=== PATIENT | female | born 1985 | race Two or more races ===

== ENCOUNTER 2016-06-14 10:10 | Emergency (ER) | payer OTHER ==
[2016-06-14 10:20] VITALS: BP 106/69
--- NOTE | 2016-06-14 10:37 | UC ---
Respiratory Complaint HPI - HPI Summary HPI Summary: The patient comes in today for: 1. Sore throat, sinus and chest congestion, body aches, Onset: 3 days ago. Palliative/provocative: Dayquil taken and helped. Quality: Scratchy. Region: Posterior throat. Severity: Body pain: 8/10, sore throat: 8/10 though she looks more like 4/10 Time: Constant. Associated symptoms: Rhinitis: Green mucous Cough: Productive of green phlegm. Fever: None found at home when temperature taken. Chest pain: None. Shortness of breath: None. * - History of Current Complaint Chief Complaint: UCGeneralIllness Stated Complaint: SINUS CONGESTION, AND ACHES Time Seen by Provider: 06/14/16 10:32 Hx Obtained From: Patient Hx Last Menstrual Period: 05/28/16 ?: No - Allergies/Home Medications Allergies/Adverse Reactions: Allergies Allergy/AdvReac Type Severity Reaction Status Date / Time Morphine AdvReac Severe Shortness Verified 06/14/16 10:16 of Breath SEAFOOD Allergy Severe Swelling Uncoded 06/14/16 10:16 Home Medications: Home Medications Albuterol HFA INHALER* [Ventolin HFA Inhaler*] 1 puff INH Q4H PRN 06/14/16 [ History Confirmed 06/14/16] PMH/Surg Hx/FS Hx/Imm Hx Endocrine History Of: Denies: Diabetes, Thyroid Disease, Hyperthyroidism, Hypothyroidism, Dyslipidemia Cardiovascular History Of: Reports: Cardiac Disorders - Hx "palpitations" "The cardio dr is not really sure what is causing it." Denies: Hypertension, Pacemaker/ICD, Myocardial Infarction, Congestive Heart Failure, Atrial Fibrillation, Deep Vein Thrombosis, Bleeding Disorders Respiratory History Of: Reports: Asthma Denies: COPD, Bronchitis, Pneumonia, Pulmonary Embolism GI/ History Of: Denies: Gastroesophageal Reflux, Ulcer, Gastrointestinal Bleed, Gall Bladder Disease, Kidney Stones, Diverticulitis, Renal Disease, Urosepsis Neurological History Of: Reports: Migraine - On no regular medications for this. Denies: TIA, CVA, Dementia, Seizures Psychological History Of: Denies: Anxiety, Depression, Bipolar Disorder, Schizophrenia, Post Traumatic Stress Disorder Cancer History Of: Denies: Lung Cancer, Colorectal Cancer, Breast Cancer, Prostate Cancer, Cervical Cancer Other History Of: Negative For: HIV, Hepatitis B, Hepatitis C, Anticoagulant Therapy - Surgical History Surgical History: Yes Surgery Procedure, Year, and Place: 2 C-SECTIONS - Family History Known Family History: Negative: Cardiac Disease, Hypertension, Renal Disease Family History: NON CONTRIBUTORY - Social History Occupation: Employed Full-time Alcohol Use: None Substance Use Type: None Smoking Status (MU): Never Smoked Tobacco Review of Systems Constitutional: Negative Skin: Negative Eyes: Negative ENT: Sore Throat, Nasal Discharge Respiratory: Cough Cardiovascular: Negative Gastrointestinal: Negative Genitourinary: Negative All Other Systems Reviewed And Are Negative: Yes Physical Exam Triage Information Reviewed: Yes Appearance: Well-Appearing, No Pain Distress, Well-Nourished Vital Signs: Initial Vital Signs Temp 98.5 F 06/14/16 10:17 Pulse 103 06/14/16 10:17 Resp 16 06/14/16 10:17 BP 106/69 06/14/16 10:17 Pulse Ox 97 06/14/16 10:17 Vital Signs Reviewed: Yes Eyes: Positive: Conjunctiva Clear. Negative: Discharge ENT: Positive: Hearing grossly normal, Other: - There is soreness of the frontal and maxillary sinuses with palpation.. Negative: Pharyngeal erythema, Nasal congestion, Nasal drainage, TM bulging, TM dull, TM red, Tonsillar swelling, Tonsillar exudate Dental: Negative: Gross Decay/Caries @, Dental Fracture @ Neck: Positive: Supple, Nontender, No Lymphadenopathy. Negative: Nuchal Rigidity Respiratory: Positive: Lungs clear, No respiratory distress, No accessory muscle use. Negative: Crackles, Wheezing Cardiovascular: Positive: RRR, No Murmur Abdomen Description: Positive: Nontender, No Organomegaly, Soft. Negative: Distended, Guarding Musculoskeletal: Positive: Strength Intact, ROM Intact, No Edema Neurological: Positive: Alert, Muscle Tone Normal Psychological: Positive: Age Appropriate Behavior, Consolable Skin: Negative: rashes, breakdown UC Diagnostic Evaluation - Laboratory O2 Sat by Pulse Oximetry: 97 Respiratory Course/Dx - Differential Dx/Diagnosis Differential Diagnosis/HQI/PQRI: Asthma, Bronchitis, Laryngitis, Sinusitis Provider Diagnoses: Sinusitis. Bronchitis Discharge - Discharge Plan Condition: Stable Disposition: HOME Patient Education Materials: Sinusitis (ED), Acute Bronchitis (ED) Forms: *Work Release Referrals: Phoenix Amin MD [Primary Care Provider] - 1 Week (Please see your primary care provider in a week to see how well you are doing. If you get worse, please be seen sooner in the ER or through us.)
== END 2016-06-14 10:54 | disposition home or self-care (01) ==
LOC: UCEAST 10:10
DX: J32.9 Chronic sinusitis, unspecified (principal); J40 Bronchitis, not specified as acute or chronic; Z88.6 Allergy status to analgesic agent
CPT/HCPCS: 99212; G0463

== ENCOUNTER 2016-07-07 08:24 | Emergency (ER) | payer OTHER ==
[2016-07-07] MEDS ORDERED: NS 0.9% 1000 ML* 1,000 ML IV ONE (08:53)
[2016-07-07] MEDS ORDERED: diPHENhydraMINE IV* 50 MG/ML 1 ml VIAL (BENADRYL) IV ONE (08:53)
[2016-07-07] MEDS ORDERED: Ondansetron INJ* 2 MG/ML VIAL IV ONE (08:54)
[2016-07-07] MEDS ORDERED: Metoclopramide IV* 5 MG/ML 2 ML VIAL IV ONE (08:54)
[2016-07-07] MEDS ORDERED: Metoclopramide IV* 5 MG/ML 2 ML VIAL ONE ×2 (08:59)
[2016-07-07 10:25] VITALS: BP 109/67
--- NOTE | 2016-07-07 14:08 | UC ---
Luann Li Janilya, scribed for [facility],Klaus Buchanan MD on 07/07/16 at 0846 . Abdominal Pain Female HPI - HPI Summary HPI Summary: Nurse's note: VOMITING AND DIARRHEA SINCE LAST NIGHT. DAUGHTER HAD THE SAME THING FOR TWO DAYS BUT IS OK NOW. note: Vital signs are stable. Note is made of a tachycardia, which may be the result of a mild dehydration. Pulse is 99. Pain is 10/10. Does not use alcohol or smoke. PMHx is notable for palpitations of unclear cause and asthma. Pt had 2 previous C-sections. Her daughter had similar Sx 2 days ago. Allergic to morphine and sea food. Chart review is significant for previous visits for vomiting, diarrhea, migraines, as well as gastritis. HPI: A 31 y/o female came in to [facility] presenting w/ a gradual onset of constant n /v/d starting last night. She states that she cannot keep fluids down. In addition, she states that she has epigastric abd pain. Pt reports that her daughter has been vomiting a few days ago. No PMHx of gallbladder removal, appendicitis. - History of Current Complaint Chief Complaint: UCRespiratory Stated Complaint: VOMITING/DIARRHEA Hx Obtained From: Patient Hx Last Menstrual Period: 05/28/2017 Onset/Duration: Gradual Onset, Lasting Days, Still Present Severity Initially: Moderate Severity Currently: Moderate Location: Diffuse Radiates: No Character: Cramping, Dull Aggravating Factor(s): Nothing Alleviating Factor(s): Nothing Associated Signs and Symptoms: Positive: Nausea, Vomiting, Diarrhea Allergies/Adverse Reactions: Allergies Allergy/AdvReac Type Severity Reaction Status Date / Time Morphine AdvReac Severe Shortness Verified 07/07/16 08:33 of Breath SEAFOOD Allergy Severe Swelling Uncoded 07/07/16 08:33 PMH/Surg Hx/FS Hx/Imm Hx Previously Healthy: Yes Endocrine History Of: Denies: Diabetes, Thyroid Disease, Hyperthyroidism, Hypothyroidism, Dyslipidemia Cardiovascular History Of: Reports: Cardiac Disorders - Hx "palpitations" "The cardio dr is not really sure what is causing it." Denies: Hypertension, Pacemaker/ICD, Myocardial Infarction, Congestive Heart Failure, Atrial Fibrillation, Deep Vein Thrombosis, Bleeding Disorders Respiratory History Of: Reports: Asthma Denies: COPD, Bronchitis, Pneumonia, Pulmonary Embolism GI/ History Of: Denies: Gastroesophageal Reflux, Ulcer, Gastrointestinal Bleed, Gall Bladder Disease, Kidney Stones, Diverticulitis, Renal Disease, Urosepsis Neurological History Of: Reports: Migraine - On no regular medications for this. Denies: TIA, CVA, Dementia, Seizures Psychological History Of: Denies: Anxiety, Depression, Bipolar Disorder, Schizophrenia, Post Traumatic Stress Disorder Cancer History Of: Denies: Lung Cancer, Colorectal Cancer, Breast Cancer, Prostate Cancer, Cervical Cancer Other History Of: Negative For: HIV, Hepatitis B, Hepatitis C, Anticoagulant Therapy - Surgical History Surgical History: Yes Surgery Procedure, Year, and Place: 2 C-SECTIONS - Family History Known Family History: Negative: Cardiac Disease, Hypertension, Renal Disease Family History: NON CONTRIBUTORY - Social History Alcohol Use: None Substance Use Type: None Smoking Status (MU): Never Smoked Tobacco Review of Systems Constitutional: Negative Skin: Negative Eyes: Negative ENT: Negative Respiratory: Negative Cardiovascular: Negative Gastrointestinal: Abdominal Pain, Vomiting, Diarrhea, Other - nausea Genitourinary: Negative Motor: Negative Neurovascular: Negative Musculoskeletal: Negative Neurological: Negative Psychological: Negative All Other Systems Reviewed And Are Negative: Yes Physical Exam Triage Information Reviewed: Yes Appearance: Well-Appearing, No Pain Distress, Well-Nourished Vital Signs: Initial Vital Signs Temp 96.7 F 07/07/16 08:34 Pulse 107 07/07/16 08:34 Resp 18 07/07/16 08:34 BP 105/67 07/07/16 08:34 Pulse Ox 99 07/07/16 08:34 Vital Signs Reviewed: Yes Eyes: Positive: Conjunctiva Clear ENT: Positive: Hearing grossly normal, Pharynx normal, TMs normal. Negative: Muffled/hoarse voice Neck: Positive: Supple, Nontender Respiratory: Positive: Chest non-tender, Lungs clear, Normal breath sounds, No respiratory distress Cardiovascular: Positive: RRR, No Murmur Abdomen Description: Positive: Other: - EPIGASTRIC ABD DISCOMFORT, DIFFUSE ABD CRAMPING Musculoskeletal: Positive: Strength Intact Neurological: Positive: Alert Psychological: Positive: Age Appropriate Behavior Skin: Negative: rashes Re-Evaluation - Re-Evaluation 1020 Re-Evaluation Time: 10:20 Comment: Mild epigastric discomfort. Vital signs are hyperactive, no peritoneal signs. Abd Pain Female Course/Dx - Course Course Of Treatment: I discussed the condition with her family. I believe she has gastroenteritis. Pulse is slightly lower after a liter of fluids. DDx include gastroenteritis, cholecystitis. Dx: 1. Gastroenteritis. 2. Peptic discomfort. I discussed with the pt about using Zofran and Benadryl as well as how to take small amounts of fluids. Prilosec, Pepto-Bismol, or Mylanta for possible acid reflux. - Differential Dx/Diagnosis Differential Diagnosis: Other - Cholecystitis, gastroenteritis Provider Diagnoses: Peptic discomfort, gastroenteritis Discharge - Discharge Plan Condition: Stable Disposition: HOME Prescriptions: Omeprazole CAP* [Prilosec CAP* 20 MG] 20 mg PO DAILY #20 cap.dr MDD 1 Ondansetron ODT TAB* [Zofran Odt TAB*] 4 mg PO Q6H #10 tab.odt Patient Education Materials: Gastroenteritis in Children (ED), Gastroenteritis (ED), Acute Nausea and Vomiting (ED) Referrals: Phoenix Amin MD [Primary Care Provider] - Additional Instructions: WE DISCUSSED: YOU HAVE STOMACH FLU AND IT LOOKS IF YOUR WHOLE FAMILY IS GETTING IT. REST, FLUIDS, ICE CHIPS OR POPS, DILUTE GATORADE OR FLAT HEVER JOSEE OR 7 UP. YOU HAS HAVE ACID DISCOMFORT IN YOUR STOMACH. TREATMENT: FOR NAUSEA/VOMITING: ZOFRAN AND BENADRYL (25 MG, UP TO 4 TIMES A DAY). GET BENADRYL OVER THE COUNTER. FOR ACID DISCOMFORT: MYLANTA OR PEPTO BISMOL; AND PRILOSEC. GO TO ED FOR ANY INCREASED OR NEW PAIN OR INABILITY TO TAKE FLUIDS. THIS SHOULD BE GETTING BETTER IN THE NEXT 2-3 DAYS. YOU SHOULDN'T HAVE A TEMPERATURE ABOVE 101.5. The documentation as recorded by the Luann osman Janilya accurately reflects the service I personally performed and the decisions made by me, Klaus Hagen MD.
== END 2016-07-07 10:37 | disposition home or self-care (01) ==
LOC: UCEAST 08:24
DX: K52.9 Noninfective gastroenteritis and colitis, unspecified (principal); R10.13 Epigastric pain; Z88.5 Allergy status to narcotic agent
CPT/HCPCS: 96360; 96374; 96375; 99212; G0463; J1200; J2405; J2765

== ENCOUNTER 2016-07-28 10:40 | Emergency (ER) | payer OTHER ==
[2016-07-28 11:07] VITALS: BP 112/65
[2016-07-28] MEDS ORDERED: Ketorolac INJ* 30 MG/ML 1 ML VIAL IM ONE (12:22)
[2016-07-28] MEDS ORDERED: diPHENhydraMINE IV* 50 MG/ML 1 ml VIAL (BENADRYL) IM ONE (12:23)
[2016-07-28] MEDS ORDERED: Ondansetron ODT TAB* 4 MG PO ONE (12:23)
--- NOTE | 2016-07-28 12:59 | UC ---
Ragini Li Matthew[facility] 07[facility]28[facility]16 at 1223 . Headache HPI - HPI Summary HPI Summary: Nurse's Note: pt has had a headache since last night w/ photosensitivity and vomiting pt has hx migraines Note: Temp 99, Vital signs stable, BP 112/65, Pulse oxygen 100%, 10/10, no alcohol, no smoker, Hx of palpitations and migraines, 2 C-Sections. Patient last seen on 07/22/15 for headache improvement with toradol and zofran. In Room Note: A 31 y/o female presents to [facility] with a constant frontal, temporal , and occiput headache since last night. The pain is rated 10/10 in severity. Associated symptoms include photophobia and vomiting - 2x. She has these margarines about 4 times per year. - History Of Current Complaint Chief Complaint: UCHeadache Stated Complaint: HEADACHE Time Seen by Provider: 07/28/16 12:09 Hx Obtained From: Patient Hx Last Menstrual Period: last week ?: No Onset/Duration: Lasting Hours, Still Present Onset Of Symptoms: Still Present Initially Headache Was: Initial Pain Scale(0-10)= - 10, Moderate Currently Pain Is: Current Pain Scale(0-10)= - 9, Moderate Pain Intensity: 10 Pain Scale Used: 0-10 Numeric Timing: Constant Character: Migraine Location of Headache: Frontal, Temporal, Occipital Aggravating Factor: Bright Lights Allevating Factors: Nothing Associated Signs And Symptoms: Positive: Vomiting. Negative: Neck Pain, Neck Stiffness - Allergies/Home Medications Allergies/Adverse Reactions: Allergies Allergy/AdvReac Type Severity Reaction Status Date / Time Morphine AdvReac Severe Shortness Verified 07/28/16 11:07 of Breath SEAFOOD Allergy Severe Swelling Uncoded 07/28/16 11:07 Home Medications: Home Medications Acetaminophen [Tylenol] 1,000 mg PO ONCE PRN 07/28/16 [History Confirmed ] PMH/Surg Hx/FS Hx/Imm Hx Endocrine History Of: Denies: Diabetes, Thyroid Disease, Hyperthyroidism, Hypothyroidism, Dyslipidemia Cardiovascular History Of: Reports: Cardiac Disorders - Hx "palpitations" "The cardio dr is not really sure what is causing it." Denies: Hypertension, Pacemaker/ICD, Myocardial Infarction, Congestive Heart Failure, Atrial Fibrillation, Deep Vein Thrombosis, Bleeding Disorders Respiratory History Of: Reports: Asthma Denies: COPD, Bronchitis, Pneumonia, Pulmonary Embolism GI/ History Of: Denies: Gastroesophageal Reflux, Ulcer, Gastrointestinal Bleed, Gall Bladder Disease, Kidney Stones, Diverticulitis, Renal Disease, Urosepsis Neurological History Of: Reports: Migraine - On no regular medications for this. Denies: TIA, CVA, Dementia, Seizures Psychological History Of: Denies: Anxiety, Depression, Bipolar Disorder, Schizophrenia, Post Traumatic Stress Disorder Cancer History Of: Denies: Lung Cancer, Colorectal Cancer, Breast Cancer, Prostate Cancer, Cervical Cancer Other History Of: Negative For: HIV, Hepatitis B, Hepatitis C, Anticoagulant Therapy - Surgical History Surgical History: Yes Surgery Procedure, Year, and Place: 2 C-SECTIONS - Family History Known Family History: Negative: Cardiac Disease, Hypertension, Renal Disease - Social History Alcohol Use: None Substance Use Type: None Smoking Status (MU): Never Smoked Tobacco Review of Systems Constitutional: Negative Skin: Negative Eyes: Photophobia ENT: Negative Respiratory: Negative Cardiovascular: Negative Gastrointestinal: Abdominal Pain, Vomiting Genitourinary: Negative Motor: Negative Neurovascular: Negative Musculoskeletal: Negative Neurological: Headache Psychological: Negative All Other Systems Reviewed And Are Negative: Yes Physical Exam Triage Information Reviewed: Yes Appearance: Well-Appearing, Well-Nourished, Pain Distress - PATIENT IS IN OBVIOUS DISCOMFORT FROM FRONTAL HEADACHE. Vital Signs: Initial Vital Signs Temp 99 F 07/28/16 11:04 Pulse 56 07/28/16 11:04 Resp 16 07/28/16 11:04 BP 112/65 07/28/16 11:04 Pulse Ox 100 07/28/16 11:04 Vital Signs Reviewed: Yes Eyes: Positive: Conjunctiva Clear ENT: Positive: Hearing grossly normal, Pharynx normal, TMs normal. Negative: Muffled/hoarse voice Neck: Positive: Supple, Nontender Respiratory: Positive: Chest non-tender, Lungs clear, Normal breath sounds, No respiratory distress Cardiovascular: Positive: RRR, No Murmur Abdomen Description: Positive: Nontender, No Organomegaly, Soft Bowel Sounds: Positive: Present Musculoskeletal: Positive: Strength Intact Neurological Exam: Other - Oriented x3, CN II-12, motor sensation grossly intact ; Negative Romberg, finger to nose normal Neurological: Positive: Alert Psychological: Positive: Age Appropriate Behavior Skin Exam: Normal Skin: Negative: rashes Re-Evaluation - Re-Evaluation First Eval Re-Evaluation Time: 12:50 Change: Improved - resting, comfortable, decreased headache, patient and voiced understanding about the plan of returning home on anti-nausea medication. Headache Course/Dx - Course Course Of Treatment: This appears to be an intermittent and typically head for this patient. She was given Zofran as well as IM Toradol and Benadryl. - Differential Dx/Diagnosis Differential Diagnosis/HQI/PQRI: Migraine, Sinus Headache, Tension Headache Provider Diagnoses: headache, migraine by history Discharge - Discharge Plan Condition: Stable Disposition: HOME Prescriptions: Ibuprofen TAB* [Motrin TAB* 800 MG] 600 mg PO Q8HR #14 tab MDD 4 Ondansetron ODT TAB* [Zofran Odt TAB*] 4 mg PO Q6H #10 tab.odt diPHENhydraMINE PO* [Benadryl PO*] 50 mg PO TID #14 cap MDD 3 Patient Education Materials: Migraine Headache (ED) Referrals: Phoenix Amin MD [Primary Care Provider] - Additional Instructions: WE DISCUSSED: See your primary care doctor. There are medicines he can prescribe to stop your headache as soon as it starts. At home for nausea and headache take: Ibuprofen: 600mg Benadryl: 50mg Zofran: 4 mg Rest; lots of fluids. GO TO ED FOR INCREASED OR NEW HEADACHE OR CONTINUED HEADACHE FOR ANOTHER 36 HOURS. The documentation as recorded by the Ragini osman Matthew accurately reflects the service I personally performed and the decisions made by , Klaus Hagen MD.
== END 2016-07-28 13:08 | disposition home or self-care (01) ==
LOC: UCEAST 10:40
DX: R51 Headache (principal); J45.909 Unspecified asthma, uncomplicated; Z88.5 Allergy status to narcotic agent
CPT/HCPCS: 96372; 99212; A9270-GY; G0463; J1200; J1885

== ENCOUNTER 2017-07-04 07:50 | Emergency (ER) | payer OTHER ==
--- OUTSIDE RECORDS SUMMARY | 2017-07-04 07:59 | XMS REPORT ---
:1985 External Reference #:[id number] Author Organization [facility] Address [address] [place] [address] Phone [phone] Care Team Providers Name Role Phone Phoenix Amin MD Care Team Information Management Engineer Unavailable Phoenix Amin MD Primary Care Physician Unavailable Payers Type Date Identification Numbers Payment Provider Subscriber Health Maintenance Policy Number: [id number] [facility] Tracee Jenkins [facility] (O) Ind. PayID: [id number] [address] [address] [place] [address] Problems Date Description Provider Status Onset: 05/08/2017 Moderate persistent asthma Steph Collinsstermacher, Active RPA-C Onset: 02/15/2017 Allergy to seafood Steph Collinsstermacher, Active RPA-C Onset: 10/12/2016 Acute maxillary sinusitis Steph Collinsstermacher, Active RPA-C Onset: 07/23/2016 Dermatographic urticaria Steph Broacher, Active RPA-C Onset: 04/18/2016 Moderate persistent asthma Rudy Nj MD Active Onset: 11/09/2015 Allergic rhinitis Steph SKaren Fenstermacher, Active RPA-C Onset: 11/09/2015 Allergic rhinitis due to pollen Steph Bordenermacher, Active RPA-C Onset: 11/09/2015 Mild intermittent asthma, Steph Collinsstermacher, Active uncomplicated RPA-C Onset: 11/09/2015 Idiopathic urticaria Steph Collinsstermacher, Active RPA-C Onset: 10/14/2015 Allergy to other foods Rudy Nj MD Active Onset: 10/14/2015 Allergic urticaria Rudy Nj MD Active Family History Date Family Member(s) Problem(s) Comments General No Current Problems Social History Type Date Description Comments Smoke-Free Home is smoke-free Pets None Cigarette Use Never Smoked Cigarettes Smoking Patient has never smoked Allergies, Adverse Reactions, Alerts Date Description Reaction Status Severity Comments 10/14/2015 Morphine active Medications Medication Date Status Form Strength Qnty SIG Indications Ordering Provider Breo Ellipta 02/19 Active Aerosol 200-25mcg 1inha inhale J30.1 Christopher /2016 /Inh ler one puff Alexey Nj MD once a day Nasacort Allergy 12/29 Active Aerosol 55mcg/Act 1bott [place] 2 J30.1 opher 24H le sprays in Alexey Nj MD each nostril once a day. Proair HFA 11/08 Active Aerosol 108(90Bas 8.500 inhale 2 Magaly Felix, e) gm puffs q4 CHILD'S NURSE mcg/Act hours as needed Epipen 2-Mundo 10/13 Active Solution 0.3mg/0.3 2unit Use as L50.0 Auto-Injec ML s directed Alexey Nj MD t as needed for anaphylax is. Loratadine 10/13 Active Tablets 10mg 30tab take one L50.0 s tablet by Alexey Nj MD mouth in the morning Zyrtec Allergy 10/13 Active Tablets 10mg 30tab one L50.0 Dispers s tablet by Alexey Nj MD mouth every evening Avelox 05/08 Hx Tablets 400mg 14tab Take one J01.00 oph s tablet by Alexey Nj MD - mouth 06/10 daily for 14 days. Desloratadine 03/08 Hx Tablets 5mg 30tab Take one L50.3 Dispers s tablet by Alexey Nj MD - mouth 05/08 daily in the morning. Levocetirizine 03/08 Hx Tablets 5mg 30tab Take one L50.3 oph Dihydrochlor /2016 s tablet by Alexey Nj MD - mouth 05/08 daily at bedtime Prednisone 02/15 Hx Tablets 10mg 30tab Take 3 J45.41 s tablets Alexey Nj MD - by mouth 03/08 twice a day for 5 days. Take with food. Cefdinir 10/12 Hx Capsules 300mg 28cap Take one J01.00 s capsule Alexey Nj MD - by mouth 02/04 twice a day x14 days Symbicort 04/18 Hx Aerosol 160-4.5mc 10.20 Inhale 2 J30.1 g/Act 0gm puffs Alexey Nj MD - twice a 05/08 day. Rinse mouth after use. Fluticasone 11/08 Hx Suspension 50mcg/Act 1unit [place] 2 J30.1 Propionate s sprays in Alexey Nj MD - each 12/29 nostr once daily No Active 10/13 Hx [facility] Alexey Nj MD - 10/13 Amoxicillin Hx Capsules 500mg Take 1 Unknown /0000 Capsule - By Mouth 06/10 3 Times Day Vital Signs Date Vital Result Comment 06/10/2017 Height 62 inches 5'2" Weight 173.00 lb BMI (Body Mass Index) 31.6 kg/m2 Heart Rate 85 /min Respiratory Rate 18 /min Body Temperature 98.1 F O2 % BldC Oximetry 99 % 05/08/2017 Height 62 inches 5'2" Weight 173.00 lb BMI (Body Mass Index) 31.6 kg/m2 Respiratory Rate 16 /min 04/19/2017 Height 62 inches 5'2" Weight 174.00 lb per patient BMI (Body Mass Index) 31.8 kg/m2 Heart Rate 76 /min Respiratory Rate 16 /min Body Temperature 96.5 F O2 % BldC Oximetry 98 % 03/08/2017 Height 62 inches 5'2" Weight 169.00 lb BMI (Body Mass Index) 30.9 kg/m2 Heart Rate 95 /min Respiratory Rate 16 /min Body Temperature 97.9 F O2 % BldC Oximetry 98 % 10/12/2016 BP Systolic 118 mmHg BP Diastolic 72 mmHg Height 62 inches 5'2" Weight 173.00 lb BMI (Body Mass Index) 31.6 kg/m2 Heart Rate 97 /min Respiratory Rate 16 /min Body Temperature 97.5 F O2 % BldC Oximetry 98 % 07/23/2016 BP Systolic 118 mmHg BP Diastolic 70 mmHg Height 62 inches 5'2" Weight 169.00 lb BMI (Body Mass Index) 30.9 kg/m2 Heart Rate 79 /min Respiratory Rate 14 /min Body Temperature 97.7 F O2 % BldC Oximetry 98 % 04/18/2016 BP Systolic 110 mmHg BP Diastolic 72 mmHg Height 62 inches 5'2" Weight 175.00 lb BMI (Body Mass Index) 32.0 kg/m2 Heart Rate 71 /min Respiratory Rate 12 /min O2 % BldC Oximetry 98 % 12/30/2015 BP Systolic 112 mmHg BP Diastolic 70 mmHg Height 62 inches 5'2" Weight 174.00 lb BMI (Body Mass Index) 31.8 kg/m2 Heart Rate 87 /min Respiratory Rate 12 /min Body Temperature 96.8 F O2 % BldC Oximetry 98 % 11/09/2015 BP Systolic 98 mmHg BP Diastolic 70 mmHg Height 62 inches 5'2" Weight 168.00 lb BMI (Body Mass Index) 30.7 kg/m2 Heart Rate 80 /min Respiratory Rate 12 /min 10/14/2015 BP Systolic 111 mmHg BP Diastolic 69 mmHg Height 62 inches 5'2" Weight 166.00 lb BMI (Body Mass Index) 30.4 kg/m2 Heart Rate 76 /min Respiratory Rate 14 /min Results Test Date Test Result H/L Range Note Order 11/09/2015 Total IgE <pending> Order 11/09/2015 Rast Seasonal and Environmental <pending> Order 10/14/2015 Epinephrine Injector Training <pending> Procedures Date CPT Code Description Status 04/19/2017 28509 Nitric Oxide Gas Determination Completed 04/19/2017 34270 Nitric Oxide Gas Determination Completed 04/19/2017 60465 Bronchodilation Responsiveness Spirometry Pre/Post Completed Bronchodil Adm 04/19/2017 12038 Bronchodilation Responsiveness Spirometry Pre/Post Completed Bronchodil Adm 03/08/2017 60161 Nitric Oxide Gas Determination Completed 02/15/2017 66370 Nitric Oxide Gas Determination Completed 02/15/2017 75952 Bronchodilation Responsiveness Spirometry Pre/Post Completed Bronchodil Adm 07/23/2016 31527 Nitric Oxide Gas Determination Completed 07/23/2016 28271 Bronchodilation Responsiveness Spirometry Pre/Post Completed Bronchodil Adm 04/18/2016 35133 Bronchodilation Responsiveness Spirometry Pre/Post Completed Bronchodil Adm 10/14/2015 27526 Education/Training PT Self-Management Each 30Minutes Completed Indiv PT Encounters Type Date Location Provider CPT E/M Dx Office Visit 06/10/2017 10:00a Micah Espinoza, RPA-C 51295 J45.40 J30.1 J30.89 Office Visit 05/08/2017 2:30p Micah Espinoza, RPA-C 02200 J01.00 J45.40 J30.1 J30.89 L50.1 Z91.013 Office Visit 04/19/2017 10:45a STEVE Felipe 72990 J45.40 Z91.013 J30.89 J30.1 L50.1 Office Visit 03/08/2017 8:45a Micah Espinoza, RPA-C 97512 J45.40 J30.89 L50.3 Z91.013 Office Visit 02/15/2017 2:00p Micah Espinoza, RPA-C 54695 J45.41 J30.89 L50.3 Z91.013 Office Visit 10/12/2016 11:30a Micah Espinoza, RPA-C 63892 J01.00 J30.89 L50.3 J45.40 Office Visit 07/23/2016 2:45p Micah Espinoza, RPA-C 73197 J45.40 J30.89 L50.1 L50.3 Office Visit 04/18/2016 1:00[place] [address] J30.1 J30.89 J45.40 Office Visit 12/30/2015 3:15p Micah Espinoza, RPA-C 88572 J30.1 J30.89 J45.20 L50.1 Office Visit 11/09/2015 11:15a Micah Espinoza RPA-C 56711 L50.1 J45.20 J30.1 J30.89 Office Visit 10/14/2015 9:30[place] [address] L50.0 Z91.018 Plan of Care Future Appointment(s):10/21/2017 8:30 am - Steph Espinoza RPA-[place] at [facility]/10/2017 - Steph Espinoza RPA-CJ45.40 Moderate persistent asthma, uncomplicatedComments:Recent asthma exacerbation has resolved. Continue Breo 200/5 as prescribed. Continue ProAir or nebulized Albuterol for breakthrough coughing, wheezing and/or shortness of breath.Follow up:3 months - w/PFT and NIOX prior to mhcgcG19.1 Allergic rhinitis due to pollenComments: Continue Nasacort AQ and Zyrtec as prescribed. I have discussed the importance of using Nasacort daily to maximize efficacy of the nasal steroid. I have reviewed proper technique of how to use a nasal spray, which should reduce discomfort that patient has been experiencing with use of Nasacort.Follow up:3 months.J30.89 Other allergic rhinitis
--- OUTSIDE RECORDS SUMMARY | 2017-07-04 07:59 | XMS REPORT ---
:1985 External Reference #:[id number] Author Organization [facility] Address [address] [place] [address] Phone [phone] Care Team Providers Name Role Phone Phoenix Amin MD Care Team Information Manager Of Digital Unavailable Phoenix Amin MD Primary Care Physician Unavailable Payers Type Date Identification Numbers Payment Provider Subscriber Health Maintenance Policy Number: [id number] [facility] Tracee Jenkins [facility] (O) Ind. PayID: [id number] [address] [address] [place] [address] Problems Date Description Provider Status Onset: 05/08/2017 [...] Form Strength Qnty SIG Indications Ordering Provider Avelox 05/08 Active Tablets 400mg 14tab Take one J01.00 oph s tablet by Alexey Nj MD mouth daily for 14 days. Breo Ellipta 02/19 Active Aerosol 200-25mcg 1inha inhale J30.1 oph /2016 /Inh ler one puff Alexey Nj MD once a day Nasacort Allergy 12/29 Active Aerosol 55mcg/Act 1bott [place] 2 J30.1 opher 24H le sprays in Alexey Nj MD each nostril once a day. Proair HFA 11/08 Active Aerosol 108(90Bas 8.500 inhale 2 Magaly Felix, e) gm puffs q4 MOUNTER CLARINETS mcg/Act hours as needed Epipen 2-Mundo 10/13 [...] by Alexey Nj MD mouth every evening Amoxicillin 00/00 Active Capsules 500mg Take 1 Unknown /0000 Capsule By Mouth 3 Times A Day Desloratadine 03/08 Hx Tablets 5mg 30tab Take one L50.3 Dispers s tablet by Alexey Nj MD - mouth 05/08 daily in the morning. Levocetirizine 03/08 Hx Tablets 5mg 30tab Take one L50.3 opher Dihydrochloride /2016 s tablet by Alexey Nj MD - mouth 05/08 daily at /2017 bedtime Prednisone 02/15 Hx Tablets 10mg 30tab [...] use. Fluticasone 11/08 Hx Suspension 50mcg/Act 1unit [place] 2 J30.1 Propionate s sprays in Alexey Nj MD - each 12/29 nostril once daily No Active 10/13 Hx oph Medications Alexey Nj MD - 10/13 Vital Signs Date Vital Result Comment 06/10/2017 [...] Procedures Date CPT Code Description Status 04/19/2017 08650 Nitric Oxide Gas Determination Completed 04/19/2017 43946 Nitric Oxide Gas Determination Completed 04/19/2017 76258 Bronchodilation Responsiveness Spirometry Pre/Post Completed Bronchodil Adm 04/19/2017 85737 Bronchodilation Responsiveness Spirometry Pre/Post Completed Bronchodil Adm 03/08/2017 11185 Nitric Oxide Gas Determination Completed 02/15/2017 45974 Nitric Oxide Gas Determination Completed 02/15/2017 04470 Bronchodilation Responsiveness Spirometry Pre/Post Completed Bronchodil Adm 07/23/2016 12023 Nitric Oxide Gas Determination Completed 07/23/2016 16662 Bronchodilation Responsiveness Spirometry Pre/Post Completed Bronchodil Adm 04/18/2016 75970 Bronchodilation Responsiveness Spirometry Pre/Post Completed Bronchodil Adm 10/14/2015 04501 Education/Training PT Self-Management Each 30Minutes Completed Indiv PT Encounters Type Date Location Provider CPT E/M Dx Office Visit 05/08/2017 2:30p [place] [address] J01.00 J45.40 J30.1 J30.89 L50.1 Z91.013 Office Visit 04/19/2017 10:45a [place] Magaly FelixSTEVE 81109 J45.40 Z91.013 J30.89 J30.1 L50.1 Office Visit 03/08/2017 8:45a [place] 42827 J45.40 J30.89 L50.3 Z91.013 Office Visit 02/15/2017 2:00p [place] [address] J45.41 J30.89 L50.3 Z91.013 Office Visit 10/12/2016 11:30a [place] 46566 J01.00 J30.89 L50.3 J45.40 Office Visit 07/23/2016 2:45p [place] 33317 J45.40 J30.89 L50.1 L50.3 Office Visit 04/18/2016 1:00p [place] [address] J30.1 J30.89 J45.40 Office Visit 12/30/2015 3:15p [place] [address]791 J30.1 J30.89 J45.20 L50.1 Office Visit 11/09/2015 11:15a [place] 63679 L50.1 J45.20 J30.1 J30.89 Office Visit 10/14/2015 9:[place] [address] L50.0 Z91.018 Plan of Care Future Appointment(s):10/21/2017 8:30 am - DUNG [place] at [place]
--- OUTSIDE RECORDS SUMMARY | 2017-07-04 07:59 | XMS REPORT ---
:1985 External Reference #:[id number] Author Organization [facility] Address [address] [address] Phone [phone] Care Team Providers Name Role Phone Phoenix Amin MD Care Team Information Track Laying Equipment Operator Unavailable Carlos Estrella III, MD Primary Care Physician Unavailable Payers Type Date Identification Numbers Payment Provider Subscriber Commercial Effective: Policy Number: [id number] Total Care/Wade Jenkins 2016 [facility] PayID: [id number] [address] [address] [place] [address] Commercial Expires: 2016 Policy Number: Total Care/Wade Jenkins [id number] [facility] PayID: [id number] [address] [address] [place] [address] Problems Date Description Provider Status Onset: 11/20/2016 Migraine without aura, not refractory Felix Antoine M.D. Active Family History Date Family Member(s) Problem(s) Comments Father due to Accidental () Father due to murdered () Mother Alive And Well Siblings 1 Social History Type Date Description Comments Marital Status Lives With Occupation Currently Working Occupation instrumental music teacher ETOH Use Denies alcohol use Recreational Drug Use Denies Drug Use Smoking Patient has never smoked Exercise Type/Frequency Does not exercise Allergies, Adverse Reactions, Alerts Date Description Reaction Status Severity Comments 05/12/2015 Morphine active 05/12/2015 Fish Containing Products active Medications Medication Date Status Form Strength Qnty SIG Indications Ordering Provider Sumatriptan 11/20/ Active Tablets 100mg 9tabs 1 tab G43.009 Felix S. Succinate 2017 twice a Arash, day prn M.D. migraine max 2 days a week Ibuprofen 10/25/ Active Tablets 600mg 30tabs Take 1 Carlos Ramirez 2016 Tablet By Delores, Mouth Up M.D. To 4 Times Daily as Needed Albuterol / Active Nebulizer (2.5mg/3ML Inhale 1 Unknown Sulfate 0000 ) 0.083% Vial Via Nebulizer 3 Times Daily as needed Zyrtec Allergy / Active Capsules 10mg 1 by mouth Unknown 0000 at hs Claritin / Active Tablets 10mg 1 by mouth Unknown 0000 every day as needed Prednisone 05/17/ Hx Tablets 20mg 7tabs 1 by mouth J20.9 Carlos Ramirez 2016 - every day Delores, 06/04/ M.D. 2018 Topiramate 11/20/ Hx Tablets 25mg 60tabs 1 qhs for G43.009 Felix Hawley. 2017 - 1 week Arash, 04/10/ then 2 qhs M.D. 2016 Diltiazem HCL 07/21/ Hx Tablets 30mg 30tabs 1 tablet Qutaybeh 2016 - by mouth S. 07/24/ once a day Maghaydah 2017 ( pt , M.D. states she did not take) Advair HFA / Hx Aerosol 230-21mcg/ 2 puff Unknown 0000 - Act twice a 2017 Guaifenesin ER / Hx Tablets ER 600mg 2 by mouth Unknown 0000 - 12HR twice a prn 2016 Ibuprofen / Hx Tablets 400mg 1 tab po Unknown 0000 - q4h prn 2016 Imitrex / Hx Tablets 50mg 1 by mouth Unknown 0000 - as needed 2016 migraine may repeat in 2 hours Loratadine / Hx Tablets 10mg 1 by mouth Unknown 0000 - every day prn 2016 Naproxen 00/ Hx Tablets 500mg 1 tablet Unknown 0000 - with food 07/24/ by mouth 2017 twice a day prn Proair HFA 00// Hx Aerosol 108(90Base 2 puffs by Unknown 0000 - ) mcg/Act mouth 07/24/ every 4 2017 hours daily Zithromax /00/ Hx Tablets 250mg 2 tabs Unknown Z-Mundo 0000 - today and tab 2014 each day therafter. by mouth Omeprazole / Hx Capsules DR 20mg 1 tab po [place], 0000 - as needed MD Klaus 2017 Ondansetron / Hx Tablets 4mg 1 tab po [place], 0000 - Dispers as needed MD Klaus 2017 Marlissa / Hx Tablets 0.15-30mg- Delgado, 0000 - mcg Phaelon 11/01/ MD Noe 2016 Moxifloxacin / Hx Tablets 400mg Finished Unknown HCL 0000 - taking 2016 Amoxicillin / Hx Capsules 500mg finished Unknown 0000 - taking 2016 Medications Administered in Office Medication Date Status Form Strength Qnty SIG Indications Ordering Provider Depomedgalilea Administered Injection Tammi 40MG Georgina Barrett M.D. Vital Signs Date Vital Result Comment 06/05/2017 Height 62 inches 5'2" Weight 169.00 lb Heart Rate 84 /min BP Systolic Sitting 110 mmHg BP Diastolic Sitting 80 mmHg Body Temperature 97.4 F O2 % BldC Oximetry 98 % BMI (Body Mass Index) 30.9 kg/m2 05/17/2017 Weight 171.38 lb Heart Rate 89 /min BP Systolic Sitting 106 mmHg BP Diastolic Sitting 70 mmHg Body Temperature 98.3 F O2 % BldC Oximetry 97 % 04/10/2017 Height 62 inches 5'2" Weight 170.00 lb Heart Rate 106 /min BP Systolic Sitting 112 mmHg BP Diastolic Sitting 76 mmHg Respiratory Rate 16 /min BMI (Body Mass Index) 31.1 kg/m2 02/14/2017 Weight 171.00 lb Heart Rate 75 /min BP Systolic 120 mmHg BP Diastolic 60 mmHg Body Temperature 98.0 F O2 % BldC Oximetry 99 % 11/20/2016 Height 62 inches 5'2" Weight 170.00 lb Heart Rate 74 /min BP Systolic Sitting 106 mmHg BP Diastolic Sitting 70 mmHg Respiratory Rate 15 /min BMI (Body Mass Index) 31.1 kg/m2 10/25/2016 Height 62 inches 5'2" Weight 171.00 lb Heart Rate 81 /min BP Systolic 100 mmHg BP Diastolic 60 mmHg Body Temperature 97.4 F O2 % BldC Oximetry 99 % BMI (Body Mass Index) 31.3 kg/m2 07/25/2016 Height 62 inches 5'2" Weight 169.00 lb Heart Rate 60 /min BP Systolic Sitting 108 mmHg BP Diastolic Sitting 64 mmHg Respiratory Rate 16 /min Pain Level 10 BMI (Body Mass Index) 30.9 kg/m2 08/11/2015 Height 62 inches 5'2" Weight 165.75 lb with shoes Heart Rate 90 /min BP Systolic Sitting 110 mmHg LA reg cuff BP Diastolic Sitting 80 mmHg LA reg cuff Respiratory Rate 17 /min BMI (Body Mass Index) 30.3 kg/m2 07/21/2015 Height 62 inches 5'2" Weight 166.50 lb with shoes Heart Rate 86 /min BP Systolic Sitting 110 mmHg LA reg cuff BP Diastolic Sitting 72 mmHg LA reg cuff Respiratory Rate 17 /min BMI (Body Mass Index) 30.4 kg/m2 Ejection Fraction 55-60% date 06/16/15 ECHO 05/19/2015 Height 62 inches 5'2" Weight 161.50 lb with shoes Heart Rate 88 /min BP Systolic Sitting 110 mmHg LA, regular cuff BP Diastolic Sitting 80 mmHg LA, regular cuff BMI (Body Mass Index) 29.5 kg/m2 Results Test Date Test Result H/L Range Note Thyroid Panel 08/11/2015 Free T4 (Free Thyroxine) 0.71 ng/dL 0.61-1.12 Thyroxine 6.89 ?g/dL 6.09-12.23 TSH (Thyroid Stim Horm) 1.97 ?IU/mL 0.34-5.60 Procedures Date CPT Code Description Status 07/25/2016 Aspiration &/Or Inj Of Ganglion Cyst(S) Any Completed Location 07/25/201666101 Inject/Drain Joint/Bursa Intermediate Completed 07/08/2015 54784 ECHO Transthoracic, Real-Time 2D With Doppler And Color Completed Flow 06/09/2015 20698 ECHO Stress Test Incl Perf Contiuous ekg Monitoring Completed W/Phys Superv 05/24/2015 19324 Holter Monitor Review (24 hr)dr narayan & nati Completed only 05/19/2015 56745 EKG Tracing & Interpretation Completed Encounters Type Date Location Provider CPT E/M Dx Office Visit 05/17/2017 [facility] Carlos Estrella, 35807 J20.9 10:40a - [facility] Office Visit 04/10/2017 [facility] Felix Antoine, 76697 G43.009 9:30a [facility] M.D. Office Visit 02/14/2017 [facility] Racheal Durand N.P. 80470 R06.02 10:40a - [place] Office Visit 11/20/2016 [facility] Felix HawleyKaren Phoenix, 09120 G43.009 11:00a [facility] M.D. Office Visit 10/25/2016 [facility] Carlos Estrella, 66845 J30.9 2:20p - [facility] G43.809 R00.2 Office Visit 07/25/2016 9:30a [facility] Tammi Barrett, 98078 M67.431 Of [facility] Office Visit 08/11/2015 10:00a [facility] JEISON Lobato 03005 R00.2 R06.02 Office Visit 07/21/2015 1:00p [facility] Subhash King, 38685 R00.2 MKarenDKaren R94.31 Office Visit 05/19/2015 1:40p [facility] Subhash King, 27621 R94.31 MSukh R00.2 R00.0 R06.02 R07.9 Plan of Care No Information Available
[2017-07-04 08:03] VITALS: BP 141/78
--- NOTE | 2017-07-04 08:15 | ED ---
Throat Pain/Nasal Congestion - HPI Summary HPI Summary: 32 y/o female here c/o of sore throat, runny nose body aches and fever for the last 2 days. She denies any SOB or CP. SHe has no other complaints. She works in [employer] and many kids are sick with URI. - History of Current Complaint Chief Complaint: UCGeneralIllness Time Seen by Provider: 07/04/17 07:57 Hx Obtained From: Patient Onset/Duration: Gradual Onset Severity: Mild Associated Signs And Symptoms: Positive: Sinus Discomfort, Nasal Discharge. Negative: Dysphagia, Drooling, Wheezing, Hoarseness Cough: Nonproductive - Epiglottits Risk Factors Epiglottis Risk Factors: Negative - Allergies/Home Medications Allergies/Adverse Reactions: Allergies Allergy/AdvReac Type Severity Reaction Status Date / Time MS Morphine [Morphine] AdvReac Severe Shortness Verified 07/04/17 07:59 of Breath SEAFOOD Allergy Severe Swelling Uncoded 07/04/17 07:59 PMH/Surg Hx/FS Hx/Imm Hx Previously Healthy: Yes Endocrine/Hematology History: Denies: Hx Anticoagulant Therapy, Hx Diabetes, Hx Thyroid Disease Cardiovascular History: Reports: Other Cardiovascular Problems/Disorders - Palpitations treated by Dr. King Denies: Hx Congestive Heart Failure, Hx Deep Vein Thrombosis, Hx Hypertension , Hx Myocardial Infarction, Hx Pacemaker/ICD Respiratory History: Reports: Hx Asthma Denies: Hx Chronic Obstructive Pulmonary Disease (COPD), Hx Lung Cancer, Hx Pneumonia, Hx Pulmonary Embolism, Other Respiratory Problems/Disorders GI History: Denies: Hx Gall Bladder Disease, Hx Gastrointestinal Bleed, Hx Ulcer, Hx Urosepsis History: Denies: Hx Kidney Stones, Hx Renal Disease Neurological History: Reports: Hx Migraine - On no regular medications for this. Denies: Hx Dementia, Hx Seizures, Hx Transient Ischemic Attacks (TIA) Psychiatric History: Denies: Hx Anxiety, Hx Depression, Hx Schizophrenia, Hx Bipolar Disorder - Surgical History Surgery Procedure, Year, and Place: 2 C-SECTIONS - Immunization History Date of Tetanus Vaccine: UTD Date of Influenza Vaccine: NONE Infectious Disease History: No Infectious Disease History: Denies: Hx Clostridium Difficile, Hx Hepatitis, Hx Human Immunodeficiency Virus (HIV), Hx of Known/Suspected MRSA, Hx Shingles, Hx Tuberculosis, Hx Known/ Suspected VRE, Hx Known/Suspected VRSA, History Other Infectious Disease, Traveled Outside the [place] in Last 30 Days - Family History Known Family History: Negative: Cardiac Disease, Hypertension, Renal Disease Family History: NON CONTRIBUTORY - Social History Alcohol Use: None Hx Substance Use: No Substance Use Type: Reports: None Hx Tobacco Use: No Smoking Status (MU): Never Smoked Tobacco Review of Systems Positive: Fever, Chills, Fatigue Eyes: Negative Positive: Sore Throat, Nasal Discharge Cardiovascular: Negative Respiratory: Negative Gastrointestinal: Negative Genitourinary: Negative Musculoskeletal: Negative Skin: Negative Neurological: Negative Psychological: Normal All Other Systems Reviewed And Are Negative: Yes Physical Exam - Summary Physical Exam Summary: Vital signs: Reviewed Gen.: Patient is a well developed and nourished female in no acute distress. Patient is sitting comfortably on the stretcher. Head: Normacephalic and atraumatic Eyes: PERRLA, EOMI x2. Ears: Right ear canal and TM WNL and Left ear canal and TM WNL Nose and mouth: Nose with dry mucosa and clear discharge, positive pharyngeal erythema with no exudate. Neck: Supple, Positive bilateral submandibular and anterior cervical lymphadenopathy. No JVD Lungs: CTA B/L CVS: S1 & S2 present. No murmurs appreciated. ABDOMEN: Soft NT w/ positive BS. EXT: FROM x 4 NEURO: A+O X 3. Triage Information Reviewed: Yes Vital Signs On Initial Exam: Initial Vitals Temp Pulse Resp BP Pulse Ox 99.2 F 120 20 141/78 99 07/04/17 08:00 07/04/17 08:00 07/04/17 08:00 07/04/17 08:00 07/04/17 08:00 Vital Signs Reviewed: Yes Diagnostics - Vital Signs Vital Signs Temp Pulse Resp BP Pulse Ox 07/04/17 08:00 99.2 F 120 20 141/78 99 - Laboratory Lab Statement: Any lab studies that have been ordered have been reviewed, and results considered in the medical decision making process. EENT Course/Dx - Course Assessment/Plan: Influenza test: negative. Rapid strep test: negative. 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 I discussed all the findings and test results with the patient and Patient was instructed to return to the or go to the ED if develops any fever, increase sore throat unable to swallow, drooling, unable to open their mouth, or any other symptoms. The patient understands and agrees. Plan of care was discussed with the patient and understands and agrees. All questions were answered at patient satisfaction. There were no further complaints or concerns. Patient is A + O X 3. hemodynamically stable. - Differential Diagnoses Differential Diagnoses: Allergic Rhinitis, Influenza, Otitis Externa, Otitis Media, Sinusitis - Diagnoses Provider Diagnoses: Influenza, URI (upper respiratory infection) Discharge - Discharge Plan Condition: Stable Disposition: HOME Prescriptions: Oseltamivir CAP* [Tamiflu CAP*] 75 mg PO BID #10 cap Patient Education Materials: Influenza (DC), Upper Respiratory Infection (DC) Forms: *Work Release Referrals: Carlos Estrella MD [Primary Care Provider] -
== END 2017-07-04 08:49 | disposition home or self-care (01) ==
LOC: UCEAST 07:50
DX: J11.1 Influenza due to unidentified influenza virus with other respiratory manifestations (principal); R00.2 Palpitations; J45.909 Unspecified asthma, uncomplicated; G43.909 Migraine, unspecified, not intractable, without status migrainosus; Z88.5 Allergy status to narcotic agent; Z91.013 Allergy to seafood
CPT/HCPCS: 87502; 87651; 99212; G0463

== ENCOUNTER 2017-07-09 07:33 | Emergency (ER) | payer OTHER ==
--- NOTE | 2017-07-09 08:22 | UC ---
Abdominal Pain Female HPI - HPI Summary HPI Summary: ONSET YESTERDAY OF ABD PAIN, N/V/D AND RIGHT FLANK PAIN. WAS RECENTLY TX FOR FLU AND JUST FINISHED TAMIFLU YESTERDAY. - History of Current Complaint Chief Complaint: UCGeneralIllness Stated Complaint: NAUSEA DIARRHEA LOWER BACK PAIN Time Seen by Provider: 07/09/17 07:36 Hx Obtained From: Patient, Family/Vermin Exterminator - Hx Last Menstrual Period: approx 06/18/17 Onset/Duration: Sudden Onset, Lasting Hours, Still Present Timing: Constant Severity Initially: Moderate Severity Currently: Moderate Pain Intensity: 9 Pain Scale Used: 0-10 Numeric Location: Diffuse Radiates: Yes Radiates to: Flank Character: Cramping, Sharp Aggravating Factor(s): Movement Alleviating Factor(s): Nothing Associated Signs and Symptoms: Positive: Back Pain, Decreased Appetite, Nausea, Vomiting, Diarrhea. Negative: Fever, Urinary Symptoms, Vaginal Bleeding, Vaginal Discharge Allergies/Adverse Reactions: Allergies Allergy/AdvReac Type Severity Reaction Status Date / Time morphine Allergy Shortness Verified 07/09/17 07:52 of Breath SEAFOOD Allergy Severe Swelling Uncoded 07/09/17 07:52 Home Medications: Home Medications Acetaminophen [Tylophen] 2 tab PO Q4HR PRN 07/09/17 [History Confirmed 07/09/17] Ibuprofen 400 mg PO Q6HR PRN 07/09/17 [History Confirmed 07/09/17] PMH/Surg Hx/FS Hx/Imm Hx Respiratory History: Asthma Neurological History: Migraine Other History Of: Negative For: HIV, Hepatitis B, Hepatitis C, Anticoagulant Therapy - Surgical History Surgical History: Yes Surgery Procedure, Year, and Place: 2 C-SECTIONS - Family History Known Family History: Negative: Cardiac Disease, Hypertension, Renal Disease - Social History Alcohol Use: None Substance Use Type: None Smoking Status (MU): Never Smoked Tobacco Review of Systems Constitutional: Fatigue Respiratory: Cough Gastrointestinal: Abdominal Pain, Vomiting, Diarrhea, Nausea Genitourinary: Negative All Other Systems Reviewed And Are Negative: Yes Physical Exam Triage Information Reviewed: Yes Appearance: Well-Appearing, No Pain Distress, Well-Nourished Vital Signs: Initial Vital Signs Temp 98.6 F 07/09/17 07:42 Pulse 97 07/09/17 07:42 Resp 18 07/09/17 07:42 BP 115/67 07/09/17 07:42 Pulse Ox 97 02/06/18 07:42 Vital Signs Reviewed: Yes Eyes: Positive: Conjunctiva Clear ENT: Positive: Hearing grossly normal, Pharynx normal, TMs normal Neck: Positive: Supple, Nontender, No Lymphadenopathy Respiratory Exam: Normal Cardiovascular Exam: Normal Abdomen Description: Positive: Nontender, Soft, CVA Tenderness (R). Negative: CVA Tenderness (L), Distended, Guarding Bowel Sounds: Positive: Present Musculoskeletal: Positive: No Edema Neurological: Positive: Alert Psychological: Positive: Age Appropriate Behavior Skin: Negative: rashes Diagnostics - Laboratory Diagnostic Studies Completed/Ordered: URINE DIP 1.015, 1+ BLOOD - Radiology CT ABD/PELVIS W/O CONTRAST Xray Interpretation: Positive (See Comments) - 1. MILD RIGHT HYDRONEPHROSIS. NO URETERAL OR BLADDER CALCULI ARE SEEN. CONSIDER RECENT PASSAGE OF A CALCULUS, PYELONEPHRITIS OR VESICOURETERAL REFLUX. RECOMMEND CLINICAL CORRELATION AND FOLLOW-UP. 2. CHOLELITHIASIS. 3. SMALL AMOUNT OF FREE INTRAPERITONEAL FLUID IN THE PELVIS. Radiology Interpretation Completed By: Radiologist Abd Pain Female Course/Dx - Differential Dx/Diagnosis Provider Diagnoses: ABDOMINAL PAIN/N/V LIKELY DUE TO RECENT PASSAGE OF KIDNEY STONE Discharge - Discharge Plan Condition: Stable Disposition: HOME Prescriptions: Ondansetron ODT TAB* [Zofran Odt TAB*] 4 mg PO Q6H PRN #20 tab.odt PRN Reason: Nausea/Vomiting Patient Education Materials: Kidney Stones (ED) Forms: *Gen. Provider Communication, *Work Release Referrals: [facility] [Provider Group] - 1 Week Carlos Estrella MD [Primary Care Provider] - If Needed Additional Instructions: CT SCAN SUGGESTIVE OF RECENT PASSAGE OF KIDNEY STONE. STAY WELL HYDRATED, REST AND TAKE IBUPROFEN NEEDED FOR DISCOMFORT. ZOFRAN FOR NAUSEA. IF YOUR SYMPTOMS ARE NOT IMPROVING OVER THE NEXT FEW DAYS FOLLOW-UP WITH UROLOGY. URINE DIP NOT SUGGESTIVE OF INFECTION/PYELONEPHRITIS. GO TO THE ER WITHOUT FAIL IF YOUR SYMPTOMS WORSEN.
--- NOTE | 2017-07-09 09:51 | RAD ---
INDICATION: Right flank abdominal pain, hematuria. COMPARISON: Comparison is made with a prior CT of the abdomen and pelvis from February 13, 2016. TECHNIQUE: A CT scan of the abdomen and pelvis was performed without intravenous or oral contrast. Contiguous axial sections were obtained from the lung bases through the symphysis pubis. Images were reconstructed in the coronal and sagittal planes. FINDINGS: The lung bases are clear. No pleural effusion is present. The liver and spleen are normal in size without significant focal abnormality on this noncontrast study. There are multiple gallstones present. No inflammatory changes are appreciated. The pancreas appears to be within normal limits. The adrenal glands and kidneys are normal in size. No renal calculi are seen. There is mild dilatation of the right renal calyces pelvis and minimal dilatation of the ureter. No ureteral or bladder calculi are seen. The aorta is normal in caliber without significant calcific plaque. There are multiple small retroperitoneal lymph nodes present in the abdomen which appears similar to the prior exam. No enlarged lymph nodes are seen by size criteria. The stomach, small and large bowel appear nondistended. The appendix is within normal limits. There is mild descending and sigmoid diverticulosis without evidence for diverticulitis. There is a small periumbilical hernia containing fat. The uterus is anteverted in position and upper limits of normal in size. There is a small amount of free intraperitoneal fluid present dependently within the pelvis. No free intraperitoneal air is seen. There is a 1.2 cm sclerotic lesion in the proximal right femur which is unchanged from the prior exam. No other focal osseous abnormalities are seen. IMPRESSION: 1. MILD RIGHT HYDRONEPHROSIS. NO URETERAL OR BLADDER CALCULI ARE SEEN. CONSIDER RECENT PASSAGE OF A CALCULUS, PYELONEPHRITIS OR VESICOURETERAL REFLUX. RECOMMEND CLINICAL CORRELATION AND FOLLOW-UP. 2. CHOLELITHIASIS. 3. SMALL AMOUNT OF FREE INTRAPERITONEAL FLUID IN THE PELVIS.
[2017-07-09 09:57] VITALS: BP 117/69
== END 2017-07-09 10:30 | disposition home or self-care (01) ==
LOC: UCEAST 07:33
DX: R10.31 Right lower quadrant pain (principal); R11.2 Nausea with vomiting, unspecified; M54.5 Low back pain; N13.30 Unspecified hydronephrosis; K80.20 Calculus of gallbladder without cholecystitis without obstruction; R53.83 Other fatigue; R05 Cough; R19.7 Diarrhea, unspecified; J45.909 Unspecified asthma, uncomplicated; G43.909 Migraine, unspecified, not intractable, without status migrainosus; Z88.5 Allergy status to narcotic agent; Z91.013 Allergy to seafood
CPT/HCPCS: 74176; 81003; 99212; G0463

== ENCOUNTER 2018-04-08 11:54 | Emergency (ER) | payer OTHER ==
[2018-04-08 12:03] VITALS: BP 108/72
[2018-04-08] MEDS ORDERED: Ondansetron ODT TAB* 4 MG PO ONE (12:23)
--- NOTE | 2018-04-08 12:30 | UC ---
Nausea/Vomiting/Diarrhea HPI - HPI Summary HPI Summary: Ms. Jenkins woke up this morning nauseated and has had for 5 episodes of watery diarrhea. She denies abdominal pain. She was at the urologist 2 days ago because she has a history of kidney stones and was told she had some sort of obstruction but not to worry about it. She was also told she has a gallstone. She has not vomited yet. She denies dysuria. - History of Current Complaint Chief Complaint: UCAbdominalPain Stated Complaint: DIARRHEA Time Seen by Provider: 04/08/18 12:14 Hx Last Menstrual Period: 03/17/18 Pain Intensity: 8 - Allergies/Home Medications Allergies/Adverse Reactions: Allergies Allergy/AdvReac Type Severity Reaction Status Date / Time morphine Allergy Shortness Verified 04/08/18 12:03 of Breath SEAFOOD Allergy Severe Swelling Uncoded 04/08/18 12:03 PMH/Surg Hx/FS Hx/Imm Hx Previously Healthy: Yes GI/ History: Gall Bladder Disease, Kidney Stones Other History Of: Negative For: HIV, Hepatitis B, Hepatitis C, Anticoagulant Therapy - Surgical History Surgical History: Yes Surgery Procedure, Year, and Place: 2 C-SECTIONS - Family History Known Family History: Negative: Cardiac Disease, Hypertension, Renal Disease - Social History Alcohol Use: None Substance Use Type: None Smoking Status (MU): Never Smoked Tobacco Review of Systems Constitutional: Fatigue Skin: Negative ENT: Negative Respiratory: Negative Cardiovascular: Negative Gastrointestinal: Negative Genitourinary: Negative All Other Systems Reviewed And Are Negative: Yes Physical Exam - Summary Physical Exam Summary: She is nontoxic in appearance and vital signs are stable. Triage Information Reviewed: Yes Appearance: Well-Appearing Vital Signs: Initial Vital Signs Temp 98 F 04/08/18 12:00 Pulse 97 04/08/18 12:00 Resp 17 04/08/18 12:00 BP 108/72 04/08/18 12:00 Pulse Ox 100 04/08/18 12:00 Vital Signs Reviewed: Yes ENT Exam: Normal Neck exam: Normal Respiratory Exam: Normal Cardiovascular Exam: Normal Abdominal Exam: Normal Abdomen Description: Positive: Nontender, Soft Musculoskeletal Exam: Normal Neurological Exam: Normal Psychological Exam: Normal Naus/Vom/Diarrhea Course/Dx - Course Course Of Treatment: I explained to her the limits of what we can do here at the [facility]. She may very well just have an acute Gastroenteritis which simply needs symptomatic treatment, but with her history of renal stones and gallstones and recent diagnosis of some sort of obstruction I think she needs a little further workup. I recommended to her that she go to the [facility] and explained why and she indicated understanding and willingness to comply. Discharge - Sign-Out/Discharge Documenting (check all that apply): Patient Departure All imaging exams completed and their final reports reviewed: Yes - Discharge Plan Condition: Stable Disposition: HOME Referrals: Carlos Estrella MD [Primary Care Provider] - - Billing Disposition and Condition Condition: STABLE Disposition: Home
== END 2018-04-08 12:37 | disposition home health service (06) ==
LOC: UCEAST 11:54
DX: R19.7 Diarrhea, unspecified (principal); Z88.5 Allergy status to narcotic agent; Z91.013 Allergy to seafood
CPT/HCPCS: 99211; A9270-GY; G0463